=== PATIENT | female | born 1990 | race Caucasian/White ===

== ENCOUNTER 2019-07-06 16:23 | Emergency (ER) | payer MEDICAID, OTHER ==
[~2019-07-06] VITALS: Ht 162.6 cm; Wt 88.9 kg
[2019-07-06 16:45] VITALS: BP 120/85
[2019-07-06] MEDS ORDERED: DICYCLOMINE 10 MG CAP PO ONE (17:50)
[2019-07-06] MEDS ORDERED: LIDOCAINE VISCOUS 2% 20 ML UDC PO ONE (17:50)
--- NOTE | 2019-07-06 18:07 | NUR ---
29 Y/O FEMALE C/O SORE THROAT/PLASTIC IN THROAT S/P ACCIDENTALLY BLENDING PLASTIC INTO DRINK AND CONSUMING BITS OF PLASTIC YESTERDAY. PT STATES SHES BEEN COUGHING UP STREAKS OF BLOOD. DENIES SOB/COUGH/CHEST PAIN. RESP EVEN AND UNLABORED. PT STATES SHE FEELS THE PIECES OF PLASTIC IN HER THROAT AND IT IS CAUSING HER DISCOMFORT. PT HAS NOT TAKEN ANYTHING FOR PAIN. DENIES N/V/D. NO PMH NKA
--- NOTE | 2019-07-06 18:17 | NUR ---
PT STATES THE MEDICATION HAS RELIEVED THE PAIN IN HER THROAT.
[2019-07-06 18:30] VITALS: BP 120/85
--- NOTE | 2019-07-06 18:31 | NUR ---
Patient discharged with v/s stable. Written and verbal after care instructions given and explained. Patient alert, oriented and verbalized understanding of instructions. Ambulatory with steady gait. All questions addressed prior to discharge. ID band removed. Patient advised to follow up with PMD. Rx of CEPACOL given. Patient educated on indication of medication including possible reaction and side effects. Opportunity to ask questions provided and answered.
== END 2019-07-06 18:30 | disposition home or self-care (01) ==
LOC: MED 16:23
DX: R07.0 Pain in throat (principal)
CPT/HCPCS: 99283

== ENCOUNTER 2023-08-03 21:42 | Emergency (ER) | payer SELFPAY ==
[~2023-08-03] VITALS: Ht 157.5 cm; Wt 96.6 kg
[2023-08-03 22:02] VITALS: BP 143/100; PULSE 81; RESP 16; TEMP 98.3; O2SAT 98
[2023-08-03 22:34] LABS: FLU A ANTIGEN negative (NEGATIVE); FLU B ANTIGEN NEGATIVE (NEGATIVE)
[2023-08-03 23:03] VITALS: O2SAT 98
[2023-08-03 23:06] VITALS: BP 155/78; PULSE 79; RESP 15; TEMP 98.1; O2SAT 97
[2023-08-03] MEDS ORDERED: ALBU0.0912 IH (23:14)
[2023-08-03] MEDS ORDERED: AZIT250T4 PO (23:14)
== END 2023-08-03 23:28 | disposition home or self-care (01) ==
LOC: MED 21:42
DX: J20.9 Acute bronchitis, unspecified (principal); Z20.822 Contact with and (suspected) exposure to COVID-19; Z79.899 Other long term (current) drug therapy
CPT/HCPCS: 71045; 87426; 87804; 99284; Q0092